=== PATIENT | female | born 2000 | race Caucasian/White ===

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

== ENCOUNTER 2018-02-03 12:00 | Inpatient (IN) | payer SELFPAY ==
[2018-02-03 13:13] LABS: BASO % 0.2 % (0-2.0); EOS % 0.9 % (0-4.5); HEMATOCRIT 35.7 % (32.4-45.2); LYMPH % 27.6 % (8-40); MCH 29.8 pg (25.7-33.7); MCHC 33.7 g/dl (32.0-36.0); MEAN CELL VOLUME 88.7 fl (80-96); MEAN PLT VOLUME 8.9 fl (7.5-11.1); MONO % 9.5 % (3.8-10.2); NEUT % 61.8 % (42.8-82.8); PLATELET COUNT 200 K/MM3 (134-434); RBC 4.03 M/mm3 (3.60-5.2); RDW 13.9 % (11.6-15.6); WHITE BLOOD COUNT 7.4 K/mm3 (4.0-10.0)
[2018-02-03 13:16] VITALS: BMI 28.4
[2018-02-03 13:29] LABS: INR 0.92 (0.83-1.09); PROTHROMBIN TIME (PATIENT) 10.8 SEC (9.7-13.0)
[2018-02-03] MEDS: DEXTROSE 5%-LACTATED RINGERS 1,000 ML IV SCH ×2 (13:30→22:05)
[2018-02-03 13:32] LABS: ACTIVATED PTT 26.6 SECONDS (25.2-36.5)
[2018-02-03 13:48] LABS: ANISOCYTOSIS 0; MACROCYTOSIS 0; PLATELET ESTIMATE NORMAL
[2018-02-03 14:08] LABS: ANION GAP 8 MMOL/L (8-16); BLOOD UREA NITROGEN 7 mg/dL (7-18); CALCIUM 8.6 mg/dL (8.5-10.1); CHLORIDE 107 mmol/L (98-107); CO2 23 mmol/L (21-32); CREATININE 0.3 mg/dL (0.55-1.3); GLUCOSE,RANDOM 80 mg/dL (74-106); POTASSIUM 3.9 mmol/L (3.5-5.1); SODIUM 138 mmol/L (136-145)
[2018-02-03] MEDS ORDERED: DINOPROSTONE 10 MG VAGINAL SUPPOSITORY VG ONE (14:43)
[2018-02-03] MEDS ORDERED: PROMETHAZINE HCL 25 MG/1 ML VIAL IVPUSH ONE (14:44)
[2018-02-03] MEDS ORDERED: BUTORPHANOL TARTRATE 1 MG/ML VIAL IVPUSH ONE (14:44)
--- NOTE | 2018-02-03 14:50 | HP ---
Past Medical History - Primary Care Physician PCP:: Nelson Shipley - Admission Chief Complaint: 38 weeks, oligohydramnions, for cervidil induction History of Present Illness: 18 yo f g 1 p0 edc by sono 02/17/18 38 weeks with hx of umbilical varnix and oligo ,UMA 4 , referred by Dr Jude SAL for induction, no pain, no contraction , no leaking fluid , cx closed 50 vx -2 mi, fhr cat 1, cervidil discussed , risks explained History Source: Patient, Significant Other Limitations to Obtaining History: Language Barrier - Past Medical History ...: 1 ...Para: 0 ...LMP: 05/09/17 ... Weeks Gestation by Dates: 38.4 ...EDC by Dates: 02/13/18 ...EDC by Sono: 02/17/18 - Past Surgical History Hx Myomectomy: No Hx Transabdominal Cerclage: No - Smoking History Smoking history: Never smoked Have you smoked in the past 12 months: No - Alcohol/Substance Use Hx Alcohol Use: No - Social History Usual Living Arrangement: Yes: With Spouse History of Recent Travel: No Home Medications - Allergies Allergies/Adverse Reactions: Allergies Allergy/AdvReac Type Severity Reaction Status Date / Time No Known Allergies Allergy Verified 02/03/18 13:02 - Home Medications Home Medications: Ambulatory Orders Prenat 115/Iron Fum/Folic/Dss [ 19 Tablet] 1 tab PO BID 01/20/18 Review of Systems - Review of Systems Constitutional: reports: No Symptoms Eyes: reports: No Symptoms HENT: reports: No Symptoms Neck: reports: No Symptoms Cardiovascular: reports: No Symptoms Respiratory: reports: No Symptoms Gastrointestinal: reports: No Symptoms Genitourinary: reports: No Symptoms Breasts: reports: No Symptoms Reported Musculoskeletal: reports: No Symptoms Integumentary: reports: No Symptoms Neurological: reports: No Symptoms Endocrine: reports: No Symptoms Hematology/Lymphatic: reports: No Symptoms Psychiatric: reports: No Symptoms Physical Exam - Maternity Vital Signs: Vital Signs Temperature 98.4 F 02/03/18 14:00 Pulse Rate 90 02/03/18 14:00 Respiratory Rate 20 02/03/18 14:00 Blood Pressure 111/70 02/03/18 14:00 O2 Sat by Pulse Oximetry (%) Constitutional: Yes: Well Nourished, No Distress, Calm Eyes: Yes: WNL, Conjunctiva Clear, EOM Intact HENT: Yes: WNL, Atraumatic, Normocephalic Neck: Yes: WNL, Supple, Trachea Midline Cardiovascular: Yes: WNL, Regular Rate and Rhythm Breast(s): Yes: WNL - Abdominal Exam/OB Fundal Height: 38 Number of Fetuses: Single Presentation: Vertex Contractions: No Intensity: Unaware Monitor Mode: External Heart Rate Location: [facility] Category: I Accelerations: Uniform Decelerations: None - Vaginal Exam/OB Vaginal Bleediing: No Speculum Exam: No Dilatation (cm): closed Effacement (%): 50 Amniotic Membrane Status: Intact Presentation: Vertex/Position Station: -2 - Physical Exam Musculoskeletal: Yes: WNL Extremities: Yes: WNL Edema: Yes Edema: LLE: Trace, RLE: Trace Deep Tendon Reflex Grade: Normal +2 Psychiatric: Yes: WNL - Labs Lab Results: CBC, BMP 02/03/18 12:15 02/03/18 12:15 Hemorrhage Risk Assessment - Risk Factors Medium Risk Factors: Yes: None High Risk Factors: Yes: None Risk Score: 1 Risk Level: Medium Risk Problem List - Problems (1) with 38 completed weeks gestation Code(s): Z3A.38 - 38 WEEKS GESTATION OF (2) Oligohydramnios Code(s): O41.00X0 - OLIGOHYDRAMNIOS, UNSP TRIMESTER, NOT APPLICABLE OR UNSP Qualifiers: Fetus number: single or unspecified fetus Trimester: third trimester Qualified Code(s): O41.03X0 - Oligohydramnios, third trimester, not applicable or unspecified Assessment/Plan plan cervidil induction , risks ,benfit discussed
--- NOTE | 2018-02-03 14:55 | PN ---
Progress Note (short form) - Note Progress Note: 245 pm cervidil inserted Problem List - Problems (1) with 38 completed weeks gestation Code(s): Z3A.38 - 38 WEEKS GESTATION OF (2) Oligohydramnios Code(s): O41.00X0 - OLIGOHYDRAMNIOS, UNSP TRIMESTER, NOT APPLICABLE OR UNSP Qualifiers: Fetus number: single or unspecified fetus Trimester: third trimester Qualified Code(s): O41.03X0 - Oligohydramnios, third trimester, not applicable or unspecified
[2018-02-04] MEDS: DEXTROSE 5%-LACTATED RINGERS 1,000 ML IV SCH ×2 (05:13→22:52)
--- NOTE | 2018-02-04 07:08 | PN ---
Progress Note (short form) - Note Progress Note: cervidil was removed at 230 am. cx 2 cm 80 vx -2 mi, fhr cat 1, contraction . irregular . can not tolerate pain , requesting epidural. ulternatives discussed Problem List - Problems (1) with 38 completed weeks gestation Code(s): Z3A.38 - 38 WEEKS GESTATION OF (2) Oligohydramnios Code(s): O41.00X0 - OLIGOHYDRAMNIOS, UNSP TRIMESTER, NOT APPLICABLE OR UNSP Qualifiers: Fetus number: single or unspecified fetus Trimester: third trimester Qualified Code(s): O41.03X0 - Oligohydramnios, third trimester, not applicable or unspecified
[2018-02-04] MEDS ORDERED: ELECTROLYTE-148 SOLN 1,000 ML IV SCH (07:15)
[2018-02-04] MEDS ORDERED: OXYTOCIN 30 UNITS in 0.9% NS 30 UNIT/500 ML INFUS.BAG IVPB SCH (07:30)
[2018-02-04] MEDS ORDERED: FENTANYL/BUPIVACAINE/NS/PF - PCEA - 50 ML DISP.SYRIN EP ONE ×3 (07:32→17:48)
[2018-02-04] MEDS ORDERED: OXYTOCIN 30 UNITS in 0.9% NS 30 UNIT/500 ML INFUS.BAG IVPB ONE (08:43)
[2018-02-04] MEDS ORDERED: NALOXONE HCL 0.4 MG/ML VIAL IVPUSH PRN (09:28)
[2018-02-04] MEDS: FENTANYL/BUPIVACAINE/NS/PF - PCEA - 50 ML DISP.SYRIN EP SCH (09:58)
--- NOTE | 2018-02-04 16:58 | PN ---
Progress Note (short form) - Note Progress Note: cx 4 cm 80 vx -1 arom, clear, fhr cat1, regular contraction Problem List - Problems (1) with 38 completed weeks gestation Code(s): Z3A.38 - 38 WEEKS GESTATION OF (2) Oligohydramnios Code(s): O41.00X0 - OLIGOHYDRAMNIOS, UNSP TRIMESTER, NOT APPLICABLE OR UNSP Qualifiers: Fetus number: single or unspecified fetus Trimester: third trimester Qualified Code(s): O41.03X0 - Oligohydramnios, third trimester, not applicable or unspecified
[2018-02-04] MEDS ORDERED: LIDO 2%/EPI 1:200000 PRESRVFRE (20 ML SDVIAL) ONE ×2 (18:34→20:13)
--- NOTE | 2018-02-04 18:40 | PN ---
Progress Note (short form) - Note Progress Note: cx 5 cm 100 vx -1 mr, fhr cat 1, regular contraction Problem List - Problems (1) with 38 completed weeks gestation Code(s): Z3A.38 - 38 WEEKS GESTATION OF (2) Oligohydramnios Code(s): O41.00X0 - OLIGOHYDRAMNIOS, UNSP TRIMESTER, NOT APPLICABLE OR UNSP Qualifiers: Fetus number: single or unspecified fetus Trimester: third trimester Qualified Code(s): O41.03X0 - Oligohydramnios, third trimester, not applicable or unspecified
[2018-02-04] MEDS ORDERED: CITRIC ACID/SODIUM CITRATE 30 ML UNIT-DOSE CUP PO ONE (20:07)
--- NOTE | 2018-02-04 20:08 | PN ---
Progress Note (short form) - Note Progress Note: cx 5 cm , large caput, no descent OP . fhr cat 1 . requesting c/s, risks discussed Problem List - Problems (1) with 38 completed weeks gestation Code(s): Z3A.38 - 38 WEEKS GESTATION OF (2) Oligohydramnios Code(s): O41.00X0 - OLIGOHYDRAMNIOS, UNSP TRIMESTER, NOT APPLICABLE OR UNSP Qualifiers: Fetus number: single or unspecified fetus Trimester: third trimester Qualified Code(s): O41.03X0 - Oligohydramnios, third trimester, not applicable or unspecified
[2018-02-04] MEDS ORDERED: oxyCODONE HCL 5 MG TABLET PO PRN (20:09)
[2018-02-04] MEDS ORDERED: diphenhydrAMINE HCL 25 MG CAPSULE (FP) PO PRN (20:09)
[2018-02-04] MEDS ORDERED: WITCH HAZEL 50% (TUCKS) 40 PAD/JAR PAD TP PRN (20:09)
[2018-02-04] MEDS ORDERED: IBUPROFEN 800 MG/8 ML IJ IVPB PRN (20:09)
[2018-02-04] MEDS ORDERED: BENZOCAINE 28 GM HEMORRHOIDAL OINTMENT PR PRN (20:09)
[2018-02-04] MEDS ORDERED: BENZOCAINE 20% 57 GM BOTTLE TP PRN (20:09)
[2018-02-04] MEDS ORDERED: METHYLERGONOVINE MALEATE 0.2 MG/1 ML AMP IM PRN (20:09)
[2018-02-04] MEDS ORDERED: OXYTOCIN 20 UNITS in 0.9% NS 20 UNIT/1,000 ML INFUS.BAG IV SCH (20:15)
[2018-02-04] MEDS ORDERED: PROPOFOL 20 ML ONE ×3 (20:37→21:01)
[2018-02-04] MEDS ORDERED: morphine SULFATE/Preservative Free 0.5 MG/ML (1cc Syringe) ONE ×3 (20:37)
[2018-02-04] MEDS ORDERED: MIDAZOLAM HCL 2 MG/2 ML SINGLE DOSE VIAL ONE ×2 (20:37→20:58)
[2018-02-04] MEDS ORDERED: SUCCINYLCHOLINE CHLORIDE 200 MG/10 ML VIAL ONE (20:37)
[2018-02-04] MEDS ORDERED: OXYTOCIN 10 UNITS/ML VIAL ONE (21:09)
[2018-02-04] MEDS ORDERED: SODIUM CHLORIDE 0.9% P/F 10 ML VIAL IJ ONE (21:09)
[2018-02-04] MEDS ORDERED: HYDROmorphone HCL CARPU-JECT 2 MG/1 ML DISP.SYRIN ONE (21:17)
[2018-02-04] MEDS ORDERED: DEXAMETHASONE SOD PHOSPHATE 4 MG/1 ML VIAL ONE (21:19)
[2018-02-04 22:10] LABS: ARTERIAL BLOOD GAS BASE EXCESS -2.7 meq/l (-2-2); ARTERIAL BLOOD GAS PCO2 51.7 mmHg (35-45); ARTERIAL BLOOD GAS pH 7.29 (7.35-7.45)
[2018-02-04 22:13] LABS: ARTERIAL BLOOD GAS PO2 22.8 mmHg (80-100)
[2018-02-04 22:14] LABS: ARTERIAL BLD GAS O2 SATURATION 47.1 % (90-98.9)
[2018-02-04] MEDS ORDERED: ROCURONIUM BROMIDE 50 MG/5 ML VIAL ONE ×2 (22:14)
[2018-02-04 22:15] LABS: VENOUS PC02 48.3 mmHg (38-52); VENOUS PH 7.3 (7.32-7.42); VENOUS PO2 47.7 mmHg (28-48)
[2018-02-04] MEDS ORDERED: SEVOFLURANE 250 ML BTL ONE (22:24)
[2018-02-05] MEDS ORDERED: OXYTOCIN 20 UNITS in 0.9% NS 20 UNIT/1,000 ML INFUS.BAG IV ONE (01:02)
[2018-02-05] MEDS ORDERED: DEXTROSE 5%-WATER - 50 ML IVPB ONE ×3 (02:47→18:34)
[2018-02-05] MEDS ORDERED: ceFAZolin SODIUM 1 GM VIAL ONE ×3 (02:47→18:34)
[2018-02-05] MEDS: CEFAZOLIN 1 GM in DEXTROSE 5%-WATER - 50 ML IVPB SCH ×4 (02:54→21:44)
[2018-02-05] MEDS ORDERED: ONDANSETRON 4 MG/2 ML VIAL IVPUSH PRN (05:40)
[2018-02-05 08:08] LABS: BASO % 0.2 % (0-2.0); HEMATOCRIT 34.2 % (32.4-45.2); HEMOGLOBIN 11.2 GM/dL (10.7-15.3); LYMPH % 12.8 % (8-40); MCH 29.1 pg (25.7-33.7); MCHC 32.8 g/dl (32.0-36.0); MEAN CELL VOLUME 88.7 fl (80-96); MEAN PLT VOLUME 9.1 fl (7.5-11.1); PLATELET COUNT 206 K/MM3 (134-434); RBC 3.86 M/mm3 (3.60-5.2); RDW 14.1 % (11.6-15.6); WHITE BLOOD COUNT 13.2 K/mm3 (4.0-10.0)
[2018-02-05] MEDS: SIMETHICONE 80 MG TAB.CHEW (FP) PO PRN ×3 (10:13→18:50)
--- NOTE | 2018-02-05 14:29 | PN ---
Progress Note, Physician Chief Complaint: s/p c section post op day one History of Present Illness: under epidural anesthesia with dura morph for post op pain control - Current Medication List Current Medications: Active Medications Benzocaine (Americaine 20% [place] -) 1 spray TP PRN PRN PRN Reason: Pain - Topical Benzocaine (Americaine Ointment -) 1 applic [place] PRN PRN PRN Reason: Pain - Topical Bisacodyl (Dulcolax Suppository -) 10 mg [place] PRN PRN PRN Reason: CONSTIPATION Diphenhydramine HCl (Benadryl -) 25 mg PO Q8H PRN PRN Reason: FOR ITCHING Diphenhydramine HCl (Benadryl Injection -) 25 mg IVPUSH Q4H PRN PRN Reason: Pruritis Fentanyl/Bupivacaine/Sodium Chlor (Bupivicaine 0.125%/Fentanyl 2mcg/Ml Pcea) 50 ml EP ASDIR CIERRA; Protocol Last Admin: 02/04/18 09:58 Dose: 50 ml Parenteral Electrolytes (Plasma-Lyte 148 -) 1,000 mls @ 125 mls/hr IV ASDIR CIERRA Last Admin: 02/04/18 07:15 Dose: 125 mls/hr Oxytocin/Sodium Chloride (Normal Saline+30 Units Oxytocin) 30 unit in 500 mls @ 1 mls/hr IVPB TITR [facility]; Protocol Last Titration: 02/04/18 13:30 Dose: 0.6 unit/hr, 10 mls/hr Cefazolin Sodium 1 gm/ (Dextrose) 50 mls @ 100 mls/hr IVPB Q8H CIERRA Stop: 02/06/18 01:59 Last Admin: 02/05/18 10:04 Dose: 100 mls/hr Dextrose/Lactated Ringer's (D5-Lr -) 1,000 mls @ 125 mls/hr IV ASDIR CIERRA Last Admin: 02/04/18 22:52 Dose: Not Given Ibuprofen (Motrin -) 600 mg PO Q4H PRN PRN Reason: PAIN LEVEL 1 - 3 Ibuprofen (Caldolor Injection -) 800 mg IVPB Q6H PRN PRN Reason: PAIN > 5 if PO not effective. Last Admin: 02/05/18 07:44 Dose: 800 mg Methylergonovine Maleate (Methergine Injection -) 0.2 mg IM Q4H PRN PRN Reason: EXCESSIVE BLEEDING Naloxone HCl (Narcan -) 0.4 mg IVPUSH PRN PRN PRN Reason: Sedation Ondansetron HCl (Zofran Injection) 4 mg IVPUSH Q4H PRN PRN Reason: NAUSEA Oxycodone HCl (Roxicodone -) 5 mg PO Q4H PRN PRN Reason: PAIN LEVEL 4 - 6 Oxycodone HCl (Roxicodone -) 10 mg PO Q4H PRN PRN Reason: PAIN LEVEL 7 - 10 Senna/Docusate Sodium (Pericolace -) 2 tablet PO HS PRN PRN Reason: CONSTIPATION Simethicone (Mylicon -) 80 mg PO Q4H PRN PRN Reason: GAS Last Admin: 02/05/18 10:13 Dose: 80 mg Witch So/Glycerin (Tucks Pads -) 1 pad TP PRN PRN PRN Reason: Pain - Topical - Objective Vital Signs: Vital Signs Temperature 100.7 F H 02/05/18 06:11 Pulse Rate 100 H 02/05/18 06:11 Respiratory Rate 20 02/05/18 09:00 Blood Pressure 99/48 L 02/05/18 06:11 O2 Sat by Pulse Oximetry (%) 100 02/04/18 23:30 Constitutional: Yes: Well Nourished Cardiovascular: Yes: WNL Respiratory: Yes: WNL Gastrointestinal: Yes: WNL Labs: CBC, BMP 02/05/18 06:45 02/03/18 12:15 INR, PTT INR 0.92 (0.83-1.09) 02/03/18 12:15 Assessment/Plan No adverse effect of anesthetic, pain controlled, no nausea or vomiting, dept of anesthesia will sign off care at this time.
[2018-02-05] MEDS: oxyCODONE HCL 5 MG TABLET PO PRN ×2 (14:45→18:49)
[2018-02-05] MEDS: IBUPROFEN 600 MG TABLET (FP) PO PRN ×2 (14:46→18:50)
--- NOTE | 2018-02-05 16:27 | PN ---
Progress Note (short form) - Note Progress Note: pod 1 doing well, no c/o CBC, BMP 02/05/18 06:45 02/03/18 12:15 Last Vital Signs Temp Pulse Resp BP Pulse Ox 100.7 F H 100 H 20 99/48 L 100 02/05/18 06:11 02/05/18 06:11 02/05/18 09:00 02/05/18 06:11 02/04/18 23:30 abdomen soft, no distension, no cva incision dry, clean no calf tenderness no excess vaginal bleeding impression low grade temp, r/o atelectasis plan ambulate , monitor temp cont. iv antibiotics encourage deep breathing Problem List - Problems (1) with 38 completed weeks gestation Code(s): Z3A.38 - 38 WEEKS GESTATION OF (2) Oligohydramnios Code(s): O41.00X0 - OLIGOHYDRAMNIOS, UNSP TRIMESTER, NOT APPLICABLE OR UNSP Qualifiers: Fetus number: single or unspecified fetus Trimester: third trimester Qualified Code(s): O41.03X0 - Oligohydramnios, third trimester, not applicable or unspecified
[2018-02-05] MEDS: DEXTROSE 5%-LACTATED RINGERS 1,000 ML IV SCH (19:00)
[2018-02-05] MEDS ORDERED: BISACODYL 10 MG SUPP.RECT PR PRN (20:09)
[2018-02-05] MEDS: FENTANYL/BUPIVACAINE/NS/PF - PCEA - 50 ML DISP.SYRIN EP SCH (21:41)
[2018-02-06] MEDS ORDERED: DEXTROSE 5%-WATER - 50 ML IVPB ONE ×3 (01:24→17:55)
[2018-02-06] MEDS ORDERED: ceFAZolin SODIUM 1 GM VIAL ONE ×3 (01:24→17:55)
[2018-02-06] MEDS: CEFAZOLIN 1 GM in DEXTROSE 5%-WATER - 50 ML IVPB SCH ×3 (01:30→18:03)
[2018-02-06] MEDS: oxyCODONE HCL 5 MG TABLET PO PRN ×4 (02:41→21:05)
[2018-02-06] MEDS: SIMETHICONE 80 MG TAB.CHEW (FP) PO PRN ×4 (02:41→21:04)
[2018-02-06] MEDS: IBUPROFEN 600 MG TABLET (FP) PO PRN ×4 (02:42→21:05)
--- NOTE | 2018-02-06 09:49 | PN ---
Progress Note (short form) - Note Progress Note: pod 2 doing well, ambulating, no excess vaginal bleeding, passing gas CBC, BMP 02/05/18 06:45 02/03/18 12:15 Last Vital Signs Temp Pulse Resp BP Pulse Ox 98.5 F 93 H 18 109/50 L 100 02/06/18 06:00 02/06/18 02:00 02/06/18 02:00 02/06/18 02:00 02/04/18 23:30 abdomen soft, no distension, no cva incision dry, clean no calf tenderness plan ambulate , cbc in am Problem List - Problems (1) with 38 completed weeks gestation Code(s): Z3A.38 - 38 WEEKS GESTATION OF (2) Oligohydramnios Code(s): O41.00X0 - OLIGOHYDRAMNIOS, UNSP TRIMESTER, NOT APPLICABLE OR UNSP Qualifiers: Fetus number: single or unspecified fetus Trimester: third trimester Qualified Code(s): O41.03X0 - Oligohydramnios, third trimester, not applicable or unspecified
[2018-02-06] MEDS: SENNOSIDES/DOCUSATE COMBO (SENNA PLUS) TABLET (UD) PO PRN (21:04)
[2018-02-07] MEDS: SIMETHICONE 80 MG TAB.CHEW (FP) PO PRN ×4 (05:41→22:06)
[2018-02-07] MEDS: IBUPROFEN 600 MG TABLET (FP) PO PRN ×4 (05:41→22:06)
[2018-02-07] MEDS: oxyCODONE HCL 5 MG TABLET PO PRN ×3 (05:43→16:14)
--- NOTE | 2018-02-07 07:49 | PN ---
Progress Note (short form) - Note Progress Note: pod 3,has mild low abdominal cramps. passing as, ambulating, afebrile CBC, BMP 02/05/18 06:45 02/03/18 12:15 Last Vital Signs Temp Pulse Resp BP Pulse Ox 99.8 F H 88 18 110/58 L 100 02/07/18 05:44 02/06/18 22:00 02/06/18 22:00 02/06/18 22:00 02/06/18 23:00 abdomen soft, no distension, no cva incision dry, clean no calf tenderness plan cbc today ambulate if afebrile plan for d/c home in am Problem List - Problems (1) with 38 completed weeks gestation Code(s): Z3A.38 - 38 WEEKS GESTATION OF (2) Oligohydramnios Code(s): O41.00X0 - OLIGOHYDRAMNIOS, UNSP TRIMESTER, NOT APPLICABLE OR UNSP Qualifiers: Fetus number: single or unspecified fetus Trimester: third trimester Qualified Code(s): O41.03X0 - Oligohydramnios, third trimester, not applicable or unspecified
[2018-02-07 08:31] LABS: BASO % 0.5 % (0-2.0); EOS % 2.2 % (0-4.5); HEMATOCRIT 32.9 % (32.4-45.2); HEMOGLOBIN 10.6 GM/dL (10.7-15.3); LYMPH % 20.7 % (8-40); MCH 28.7 pg (25.7-33.7); MCHC 32.2 g/dl (32.0-36.0); MEAN CELL VOLUME 89.3 fl (80-96); MEAN PLT VOLUME 8.7 fl (7.5-11.1); MONO % 8.2 % (3.8-10.2); NEUT % 68.4 % (42.8-82.8); PLATELET COUNT 232 K/MM3 (134-434); RBC 3.68 M/mm3 (3.60-5.2); RDW 13.7 % (11.6-15.6); WHITE BLOOD COUNT 11.1 K/mm3 (4.0-10.0)
[2018-02-07] MEDS: SENNOSIDES/DOCUSATE COMBO (SENNA PLUS) TABLET (UD) PO PRN (22:06)
[2018-02-08] MEDS: IBUPROFEN 600 MG TABLET (FP) PO PRN (09:00)
[2018-02-08] MEDS: SIMETHICONE 80 MG TAB.CHEW (FP) PO PRN (09:00)
[2018-02-08 09:18] VITALS: BP 101/60; PULSE 73; TEMP 98.1
--- NOTE | 2018-02-08 10:02 | DS ---
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: Vital Signs Temperature 98.1 F 02/08/18 09:08 Pulse Rate 73 02/08/18 09:08 Respiratory Rate 20 02/08/18 09:08 Blood Pressure 101/60 02/08/18 09:08 O2 Sat by Pulse Oximetry (%) 100 02/06/18 23:00 Constitutional: Yes: Well Nourished, No Distress, Calm Eyes: Yes: WNL, Conjunctiva Clear, EOM Intact HENT: Yes: WNL, Atraumatic, Normocephalic Neck: Yes: WNL, Supple, Trachea Midline Cardiovascular: Yes: WNL, Regular Rate and Rhythm Respiratory: Yes: WNL, Regular, CTA Bilaterally Gastrointestinal: Yes: WNL ...Rectal Exam: Yes: WNL Renal/: Yes: WNL ....Post : Yes: Uterus firm, Uterus non-tender, Slight lochia rubra Breast(s): Yes: WNL Musculoskeletal: Yes: WNL Extremities: Yes: WNL Edema: No Integumentary: Yes: WNL Wound/Incision: Yes: Clean/Dry, Well Approximated, [place] Intact Neurological: Yes: WNL, Alert, Oriented ...Motor Strength: WNL Psychiatric: Yes: WNL, Alert, Oriented Labs: CBC, BMP 02/07/18 07:40 02/03/18 12:15 Delivery - Delivery Section: Primary, Low Flap Transverse (no complication) Type of Anesthesia: General EBL (cc): 500 Delivery, Single - Stages of Labor Date 1st Stage Initiatied: 02/04/18 Time 1st Stage Initiated: 08:00 Date 2nd Stage Initiated: 02/04/18 Date of Delivery: 02/04/18 Time of Delivery: 20:49 Time Placenta Delivered: 20:50 Placenta: Yes: Expressed - 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 care 1 week, if fever pain, heavy vaginal bleeding call MD Referrals: Nelson Shipley MD [Staff Physician] - - Home Medications Comprehensive Discharge Medication List: Ambulatory Orders Prenat 115/Iron Fum/Folic/Dss [ 19 Tablet] 1 tab PO BID 01/20/18 Ibuprofen [Motrin -] 600 mg PO QID #28 tablet 02/06/18 Ibuprofen [Motrin -] 600 mg PO QID #28 tablet 02/08/18
--- NOTE | 2018-02-08 11:31 | PN ---
Post Progress Note Post Day: 4 Type of Delivery: Primary C/S Vital Signs: Vital Signs Temperature 98.1 F 02/08/18 09:08 Pulse Rate 73 02/08/18 09:08 Respiratory Rate 20 02/08/18 09:08 Blood Pressure 101/60 02/08/18 09:08 O2 Sat by Pulse Oximetry (%) 100 02/06/18 23:00 Breast Exam: Yes: Soft Abdomen/GI: Yes: Abdomen soft Lochia: Yes: Rubra Lochia, amount: Small Extremities: Yes: Calves non-tender Perineum: Yes: Intact Activity: Ambulating - Labs Labs: CBC WBC 11.1 K/mm3 (4.0-10.0) H 02/07/18 07:40 RBC 3.68 M/mm3 (3.60-5.2) 02/07/18 07:40 Hgb 10.6 GM/dL (10.7-15.3) L 02/07/18 07:40 Hct 32.9 % (32.4-45.2) 02/07/18 07:40 MCV 89.3 fl (80-96) 02/07/18 07:40 MCH 28.7 pg (25.7-33.7) 02/07/18 07:40 MCHC 32.2 g/dl (32.0-36.0) 02/07/18 07:40 RDW 13.7 % (11.6-15.6) 02/07/18 07:40 Plt Count 232 K/MM3 (134-434) 02/07/18 07:40 MPV 8.7 fl (7.5-11.1) 02/07/18 07:40 Absolute Neuts (auto) 7.6 K/mm3 (1.5-8.0) 02/07/18 07:40 Neutrophils % 68.4 % (42.8-82.8) 02/07/18 07:40 Neutrophils % (Manual) 59.4 % (42.8-82.8) 02/03/18 12:15 Band Neutrophils % 0.0 % 02/03/18 12:15 Lymphocytes % 20.7 % (8-40) D 02/07/18 07:40 Lymphocytes % (Manual) 30.2 % (8-40) 02/03/18 12:15 Monocytes % 8.2 % (3.8-10.2) 02/07/18 07:40 Monocytes % (Manual) 8 % (3.8-10.2) 02/03/18 12:15 Eosinophils % 2.2 % (0-4.5) D 02/07/18 07:40 Eosinophils % (Manual) 1.1 % (0-4.5) 02/03/18 12:15 Basophils % 0.5 % (0-2.0) 02/07/18 07:40 Basophils % (Manual) 1.0 % (0-2.0) 02/03/18 12:15 Myelocytes % (Man) 0 % (0-2) 02/03/18 12:15 Promyelocytes % (Man) 0 % (0-2) 02/03/18 12:15 Blast Cells % (Manual) 0 % (0-0) 02/03/18 12:15 Nucleated RBC % 0 % (0-0) 02/07/18 07:40 Metamyelocytes 0 % (0-2) 02/03/18 12:15 Hypochromia 0 02/03/18 12:15 Platelet Estimate Normal 02/03/18 12:15 Polychromasia 0 02/03/18 12:15 Poikilocytosis 0 02/03/18 12:15 Anisocytosis 0 02/03/18 12:15 Microcytosis 0 02/03/18 12:15 Macrocytosis 0 02/03/18 12:15 Assessment/Plan stable dc home see on wednesday for inc check
--- NOTE | 2018-02-11 16:41 | PATH ---
Surgical Pathology Report Patient Name: ELAINE GALE Med. Rec. #: [id number] /Age/Gender: 2000 (Age: 18) / F Account: [id number] Location: [facility] OBS/NET ARCHITECT Taken: 02/04/2018 Received: 02/07/2018 Reported: 02/11/2018 Physicians: Nelson Shipley M.D. Specimen(s) Received PLACENTA Clinical History 38.4 weeks, , primary , failure to progress Final Diagnosis PLACENTA: THIRD TRIMESTER PLACENTA WITH TWO FOCI OF INTRAPARENCHYMAL HEMORRHAGE (1.1 CM IN GREATEST DIMENSION). TRIVASCULAR CORD. MEMBRANES WITH NO DIAGNOSTIC ABNORMALITIES. Electronically Signed Lou Prajapati M.D. Gross Description The specimen is received fresh labeled placenta and is a 534 gram, 16.0 x 13.5 x 3.4 cm. placenta with attached membranes and umbilical cord. The attached membranes are smith, translucent with focal opacities and insert marginally. The umbilical cord measures 16.5 cm. in length and averages 1.2 cm. in diameter. The cord inserts eccentrically, 2.5 cm. to the nearest margin. No true knots or strictures are identified. Cut surface of the umbilical cord reveals 3 vessels. The surface is stoner-blue with minimal fibrin deposition and appropriate caliber vessels. The maternal surface is red-brown with focal defects. Sectioning reveals 2 smith, firm lesions averaging 1.1 cm greatest dimension. The remaining placental parenchyma is red-brown and spongy. Retort Operator sections are submitted in 4 cassettes as follows: 1-membrane roll and umbilical cord; 2-3-lesions; 1-[id number] section of placenta. 02/10/2018 saudi02/10/2018
== END 2018-02-08 14:00 | disposition home or self-care (01) | DRG 540 ==
LOC: JLDR 12:00 → J3W 02-05 01:50
PROVIDERS: ADMIT Obstetrics & Gynecology; ATTEND Obstetrics & Gynecology
PROC: 10D00Z1 Extraction of Products of Conception, Low, Open Approach (ICD-10-PCS; principal; 2018-02-03)
PROC: 3E0P7VZ Introduction of Hormone into Female Reproductive, Via Natural or Artificial Opening (ICD-10-PCS; 2018-02-03)
DX: O41.03X0 Oligohydramnios, third trimester, not applicable or unspecified (principal); Z3A.38 38 weeks gestation of pregnancy; Z37.0 Single live birth
CPT/HCPCS: 36415; 36600; 80048; 82803; 85025; 85610; 85730; 86593; 86850; 86900; 86901; 88307-TC

== ENCOUNTER 2021-06-17 13:17 | Emergency (ER) | payer OTHER ==
[2021-06-17 13:26] VITALS: BP 119/80; PULSE 88; TEMP 98; BMI 25.8
[2021-06-17] MEDS ORDERED: ONDANSETRON 4 MG/2 ML VIAL IVPB ONE (13:54)
[2021-06-17] MEDS ORDERED: SODIUM CHLORIDE 0.9% 500 ML INFUS.BAG IV ONE (13:55)
[2021-06-17] MEDS ORDERED: ONDANSETRON 4 MG/2 ML VIAL ONE (14:08)
[2021-06-17 14:23] LABS: EPI CELLS >36 /uL (0-25.1); HYALINE CASTS 16 /uL (0-3.1); PH,URINE 5.5 (5.0-8.0); URINE APPEARANCE TURBID; URINE BACTERIA 3914 /uL (0-1359); URINE BILIRUBIN 2+ (NEGATIVE); URINE COLOR DK YELLOW; URINE GLUCOSE (UA) NEGATIVE (NEGATIVE); URINE KETONE 4+ (NEGATIVE); URINE LEUK ESTERASE 2+ (NEGATIVE); URINE NITRITE NEGATIVE (NEGATIVE); URINE PROTEIN 1+ (NEGATIVE); URINE RBC 16 /uL (0-23.9); URINE WBC 237 /uL (0-25.8)
[2021-06-17 14:49] LABS: BASO % 1.1 % (0-2.0); EOS % 1.8 % (0-4.5); HEMATOCRIT 40.3 % (32.4-45.2); HEMOGLOBIN 13.4 GM/dL (10.7-15.3); MCH 28.3 pg (25.7-33.7); MCHC 33.2 g/dl (32.0-36.0); MEAN CELL VOLUME 85.1 fl (80-96); MEAN PLT VOLUME 8.8 fl (7.5-11.1); MONO % 8.3 % (3.8-10.2); NEUT % 59.8 % (42.8-82.8); PLATELET COUNT 237 10^3/uL (134-434); RBC 4.73 M/mm3 (3.60-5.2); RDW 13.1 % (11.6-15.6); WHITE BLOOD COUNT 5.5 K/mm3 (4.0-10.0)
[2021-06-17 15:03] LABS: CALCIUM 9.5 mg/dL (8.5-10.1)
[2021-06-17 15:04] LABS: ALBUMIN 3.8 g/dl (3.4-5.0)
[2021-06-17 15:07] LABS: CREATININE 0.5 mg/dL (0.55-1.3)
[2021-06-17 15:09] LABS: BILIRUBIN,TOTAL 0.9 mg/dL (0.2-1); TOT PROT 8.2 g/dl (6.4-8.2)
== END 2021-06-17 17:06 | disposition home or self-care (01) ==
LOC: JERFT 13:17 → JER 13:17
PROC: 3E033GC Introduction of Other Therapeutic Substance into Peripheral Vein, Percutaneous Approach (ICD-10-PCS; principal; 2021-06-17)
DX: O21.9 Vomiting of pregnancy, unspecified (principal); Z3A.01 Less than 8 weeks gestation of pregnancy
CPT/HCPCS: 36415; 76801-TC; 80053; 81003; 84702; 84703; 85025; 87086; 96374; 99284-25

== ENCOUNTER 2021-07-05 20:48 | Emergency (ER) | payer OTHER ==
[2021-07-05 20:58] VITALS: TEMP 98.2; BMI 29.9
[2021-07-05] MEDS ORDERED: ACETAMINOPHEN 1000 MG/100 ML BAG IVPB ONE (21:29)
[2021-07-05] MEDS ORDERED: ACETAMINOPHEN INJECTION 100 ML IVPB ONE (21:55)
[2021-07-05 21:56] LABS: BASO % 0.4 % (0-2.0); EOS % 1.6 % (0-4.5); HEMATOCRIT 35.5 % (32.4-45.2); HEMOGLOBIN 12.2 GM/dL (10.7-15.3); LYMPH % 21.7 % (8-40); MCH 29.1 pg (25.7-33.7); MCHC 34.3 g/dl (32.0-36.0); MEAN CELL VOLUME 84.8 fl (80-96); MEAN PLT VOLUME 8.7 fl (7.5-11.1); MONO % 7.6 % (3.8-10.2); NEUT % 68.7 % (42.8-82.8); PLATELET COUNT 244 10^3/uL (134-434); RBC 4.19 M/mm3 (3.60-5.2); WHITE BLOOD COUNT 8.9 K/mm3 (4.0-10.0)
[2021-07-05 22:16] LABS: CALCIUM 9.5 mg/dL (8.5-10.1)
[2021-07-05 22:17] LABS: ALBUMIN 3.5 g/dl (3.4-5.0); BLOOD UREA NITROGEN 8.7 mg/dL (7-18); MAGNESIUM 2.2 mg/dL (1.8-2.4)
[2021-07-05 22:20] LABS: CREATININE 0.4 mg/dL (0.55-1.3)
[2021-07-05 22:21] LABS: BILIRUBIN,TOTAL 0.4 mg/dL (0.2-1); TOT PROT 8.1 g/dl (6.4-8.2)
[2021-07-05 22:22] LABS: EPI CELLS >36 /uL (0-25.1); HYALINE CASTS 1 /uL (0-3.1); PH,URINE 7.5 (5.0-8.0); URINE APPEARANCE CLEAR; URINE BACTERIA 88 /uL (0-1359); URINE BILIRUBIN NEGATIVE (NEGATIVE); URINE COLOR YELLOW; URINE GLUCOSE (UA) NEGATIVE (NEGATIVE); URINE KETONE NEGATIVE (NEGATIVE); URINE LEUK ESTERASE 1+ (NEGATIVE); URINE NITRITE NEGATIVE (NEGATIVE); URINE PROTEIN NEGATIVE (NEGATIVE); URINE RBC 5 /uL (0-23.9); URINE WBC 49 /uL (0-25.8)
[2021-07-05 22:24] LABS: INR 1.03 (0.83-1.09); PROTHROMBIN TIME (PATIENT) 11.9 SEC (9.7-13.0)
[2021-07-05 22:26] LABS: ACTIVATED PTT 35.2 SECONDS (25.2-36.5)
[2021-07-05] MEDS ORDERED: CEFTRIAXONE 1,000 MG in DEXTROSE 5%-WATER - 50 ML IVPB ONE (22:30)
[2021-07-05] MEDS ORDERED: CEFTRIAXONE 1 GM/50 ML BAG ONE (23:03)
[2021-07-05 23:38] VITALS: BP 106/77; PULSE 69
== END 2021-07-06 01:05 | disposition home or self-care (01) ==
LOC: JER 20:48
PROC: 3E0333Z Introduction of Anti-inflammatory into Peripheral Vein, Percutaneous Approach (ICD-10-PCS; principal; 2021-07-05)
PROC: 3E03329 Introduction of Other Anti-infective into Peripheral Vein, Percutaneous Approach (ICD-10-PCS; 2021-07-05)
DX: O02.1 Missed abortion (principal); O26.851 Spotting complicating pregnancy, first trimester; Z3A.01 Less than 8 weeks gestation of pregnancy
CPT/HCPCS: 36415; 76817-TC; 80053; 81003; 83735; 84702; 85025; 85610; 85730; 86850; 86900; 86901; 87086; 99284-25

== ENCOUNTER 2021-07-21 05:15 | Day surgery (SDC) | payer OTHER ==
[2021-07-18 16:18] VITALS: BMI 28.3
[2021-07-21] MEDS ORDERED: MIDAZOLAM HCL 2 MG/2 ML SINGLE DOSE VIAL ONE (10:13)
[2021-07-21] MEDS ORDERED: PROPOFOL 20 ML ONE (10:13)
[2021-07-21] MEDS ORDERED: DEXAMETHASONE SOD PHOSPHATE 4 MG/1 ML VIAL ONE (10:51)
[2021-07-21] MEDS ORDERED: ONDANSETRON 4 MG/2 ML VIAL ONE (10:51)
[2021-07-21] MEDS ORDERED: LIDOCAINE HCL/PF 2% SDV 5ML VIAL ONE (10:51)
[2021-07-21] MEDS ORDERED: SUCCINYLCHOLINE CHLORIDE 200 MG/10 ML SYRINGE ONE (11:02)
[2021-07-21] MEDS ORDERED: ROCURONIUM BROMIDE 100 MG/10 ML VIAL ONE (11:03)
[2021-07-21] MEDS ORDERED: oxyCODONE HCL 5 MG TABLET PO PRN ×2 (12:33)
[2021-07-21] MEDS ORDERED: ONDANSETRON 4 MG/2 ML VIAL IVPUSH PRN (12:33)
[2021-07-21] MEDS ORDERED: LACTATED RINGERS SOLUTION 1,000 ML IV SCH (12:45)
[2021-07-21 12:47] VITALS: TEMP 97.3
[2021-07-21 13:01] VITALS: BP 118/70; PULSE 70
== END 2021-07-21 13:41 | disposition home or self-care (01) ==
LOC: JASU-SURG 05:15
PROVIDERS: ATTEND Obstetrics & Gynecology
PROC: 10D17ZZ Extraction of Products of Conception, Retained, Via Natural or Artificial Opening (ICD-10-PCS; principal; 2021-07-21 10:00)
DX: O03.4 Incomplete spontaneous abortion without complication (principal)
CPT/HCPCS: 88305-TC; 94760

== ENCOUNTER 2022-11-19 22:46 | Inpatient (IN) | payer OTHER ==
[2022-11-19 23:53] LABS: BASO % 0.2 % (0-2.0); EOS % 0.8 % (0-4.5); HEMATOCRIT 33.3 % (32.4-45.2); HEMOGLOBIN 11.6 GM/dL (10.7-15.3); LYMPH % 30.6 % (8-40); MCH 29.4 pg (25.7-33.7); MCHC 34.9 g/dl (32.0-36.0); MEAN CELL VOLUME 84.2 fl (80-96); MEAN PLT VOLUME 9.2 fl (7.5-11.1); MONO % 9.4 % (3.8-10.2); PLATELET COUNT 169 10^3/uL (134-434); RBC 3.95 M/mm3 (3.60-5.2); RDW 13.8 % (11.6-15.6); WHITE BLOOD COUNT 8.6 K/mm3 (4.0-10.0)
[2022-11-20 00:02] LABS: CALCIUM 8.7 mg/dL (8.5-10.1); POTASSIUM 3.9 mmol/L (3.5-5.1)
[2022-11-20 00:03] LABS: BLOOD UREA NITROGEN 9.5 mg/dL (7-18)
[2022-11-20] MEDS ORDERED: ONDANSETRON 4 MG/2 ML VIAL IVPUSH PRN (00:04)
[2022-11-20] MEDS ORDERED: morphine SULFATE/PF 1 MG/2 ML (2cc Syringe - QUVA) EP ONE (00:04)
[2022-11-20 00:06] LABS: CREATININE 0.5 mg/dL (0.55-1.3)
[2022-11-20] MEDS ORDERED: ceFAZolin SODIUM 1 GM VIAL ONE (00:11)
[2022-11-20] MEDS ORDERED: SODIUM CHLORIDE 0.9% P/F 10 ML VIAL IJ ONE (00:11)
[2022-11-20] MEDS ORDERED: PHENYLEPHRINE HCL 10 MG/1 ML SINGLE DOSE VIAL ONE (00:12)
[2022-11-20] MEDS ORDERED: ELECTROLYTE-148 SOLN 1,000 ML IV SCH (00:15)
[2022-11-20] MEDS ORDERED: CITRIC ACID/SODIUM CITRATE 30 ML UNIT-DOSE CUP PO ONE (00:15)
[2022-11-20] MEDS ORDERED: OXYTOCIN 10 UNITS/ML VIAL ONE ×2 (00:51→01:16)
[2022-11-20] MEDS ORDERED: ONDANSETRON 4 MG/2 ML VIAL ONE (01:03)
[2022-11-20] MEDS ORDERED: ACETAMINOPHEN 325 MG TABLET (FP) PO PRN (01:24)
[2022-11-20] MEDS ORDERED: METHYLERGONOVINE MALEATE 0.2 MG/1 ML AMP IM PRN (01:24)
[2022-11-20] MEDS ORDERED: IBUPROFEN 800 MG/8 ML IJ IVPB PRN (01:26)
[2022-11-20] MEDS ORDERED: METOCLOPRAMIDE HCL INJECTION 10 MG/2 ML VIAL ONE (01:28)
[2022-11-20 02:08] LABS: CORD BASE EXCESS -2.7 mmol/L (0-2); CORD HCO3 25.5 mmHg (20-29); CORD PCO2 57.9 mmHg (30-78); CORD pH 7.261 (7.14-7.44)
[2022-11-20 02:10] LABS: CORD BASE EXCESS -2.8 mmol/L (0-2); CORD HCO3 23.3 mmHg (20-29); CORD PCO2 44.7 mmHg (30-78); CORD pH 7.334 (7.14-7.44)
[2022-11-20 02:12] VITALS: BMI 33.3
[2022-11-20 03:28] LABS: HIV INTERPRETATION NEGATIVE (NEGATIVE)
[2022-11-20] MEDS ORDERED: OXYTOCIN 20 UNITS in 0.9% NS 20 UNIT/1,000 ML INFUS.BAG IV ONE (03:57)
[2022-11-20] MEDS: OXYTOCIN 20 UNITS in 0.9% NS 20 UNIT/1,000 ML INFUS.BAG IV SCH ×2 (04:10→12:47)
[2022-11-20] MEDS: CEFAZOLIN SODIUM 2 GM in DEXTROSE 5%-WATER 100 ML IVPB SCH ×3 (04:22→17:32)
[2022-11-20] MEDS ORDERED: IBUPROFEN 800 MG/8 ML IJ IVPB ONE (04:35)
[2022-11-20 05:12] VITALS: RESP 18
[2022-11-20] MEDS: ENOXAPARIN NA (PORCINE) 40 MG/0.4 ML DISP.SYRIN SQ SCH (09:20)
[2022-11-20] MEDS: SIMETHICONE 80 MG TAB.CHEW (FP) PO PRN ×2 (09:20→20:34)
[2022-11-20] MEDS: IBUPROFEN 600 MG TABLET (FP) PO PRN ×2 (09:21→20:34)
[2022-11-20] MEDS: GENTAMICIN SULFATE 0.3% OPHTHALMIC (EYE DROPS) 5ML BOTTLE OU SCH ×3 (10:24→22:16)
[2022-11-20] MEDS ORDERED: oxyCODONE HCL 5 MG TABLET PO PRN (13:24)
[2022-11-21] MEDS ORDERED: BISACODYL 10 MG SUPP.RECT RC PRN (01:24)
[2022-11-21] MEDS: OXYTOCIN 20 UNITS in 0.9% NS 20 UNIT/1,000 ML INFUS.BAG IV SCH (05:41)
[2022-11-21] MEDS: IBUPROFEN 600 MG TABLET (FP) PO PRN ×2 (05:42→09:49)
[2022-11-21] MEDS: SIMETHICONE 80 MG TAB.CHEW (FP) PO PRN ×3 (05:42→23:53)
[2022-11-21] MEDS: GENTAMICIN SULFATE 0.3% OPHTHALMIC (EYE DROPS) 5ML BOTTLE OU SCH ×4 (05:44→22:29)
[2022-11-21 09:09] LABS: BASO % 0.4 % (0-2.0); EOS % 1.2 % (0-4.5); HEMATOCRIT 32.8 % (32.4-45.2); HEMOGLOBIN 11.2 GM/dL (10.7-15.3); LYMPH % 17.1 % (8-40); MCH 29.4 pg (25.7-33.7); MCHC 34.3 g/dl (32.0-36.0); MEAN CELL VOLUME 85.6 fl (80-96); MEAN PLT VOLUME 9.9 fl (7.5-11.1); MONO % 8.9 % (3.8-10.2); NEUT % 72.4 % (42.8-82.8); PLATELET COUNT 153 10^3/uL (134-434); RBC 3.83 M/mm3 (3.60-5.2); RDW 13.7 % (11.6-15.6); WHITE BLOOD COUNT 8.8 K/mm3 (4.0-10.0)
[2022-11-21] MEDS: ENOXAPARIN NA (PORCINE) 40 MG/0.4 ML DISP.SYRIN SQ SCH (09:45)
[2022-11-21] MEDS: oxyCODONE HCL 5 MG TABLET PO PRN ×2 (19:57→23:53)
[2022-11-22] MEDS: IBUPROFEN 600 MG TABLET (FP) PO PRN ×4 (04:27→23:09)
[2022-11-22] MEDS: SIMETHICONE 80 MG TAB.CHEW (FP) PO PRN ×3 (04:28→23:09)
[2022-11-22] MEDS: GENTAMICIN SULFATE 0.3% OPHTHALMIC (EYE DROPS) 5ML BOTTLE OU SCH ×6 (05:55→22:06)
[2022-11-22] MEDS: ENOXAPARIN NA (PORCINE) 40 MG/0.4 ML DISP.SYRIN SQ SCH (09:50)
[2022-11-23] MEDS: GENTAMICIN SULFATE 0.3% OPHTHALMIC (EYE DROPS) 5ML BOTTLE OU SCH ×2 (06:00→09:03)
[2022-11-23 07:14] LABS: BASO % 0.6 % (0-2.0); EOS % 2.5 % (0-4.5); HEMATOCRIT 34.4 % (32.4-45.2); HEMOGLOBIN 11.3 GM/dL (10.7-15.3); MCH 28.4 pg (25.7-33.7); MEAN PLT VOLUME 9.2 fl (7.5-11.1); MONO % 7.4 % (3.8-10.2); NEUT % 72.5 % (42.8-82.8); PLATELET COUNT 213 10^3/uL (134-434); RDW 13.6 % (11.6-15.6); WHITE BLOOD COUNT 12.5 K/mm3 (4.0-10.0)
[2022-11-23 08:18] VITALS: BP 123/78; PULSE 84; TEMP 98.1
[2022-11-23] MEDS: ENOXAPARIN NA (PORCINE) 40 MG/0.4 ML DISP.SYRIN SQ SCH (09:05)
== END 2022-11-23 12:40 | disposition home or self-care (01) | DRG 540 ==
LOC: JDEL 22:46 → JLDR 23:20 → J3W 11-20 04:17
PROVIDERS: ADMIT Obstetrics & Gynecology; ATTEND Obstetrics & Gynecology
PROC: 10D00Z1 Extraction of Products of Conception, Low, Open Approach (ICD-10-PCS; principal; 2022-11-20)
DX: O42.013 Preterm premature rupture of membranes, onset of labor within 24 hours of rupture, third trimester (principal); O32.1XX2 Maternal care for breech presentation, fetus 2; O30.043 Twin pregnancy, dichorionic/diamniotic, third trimester; O34.219 Maternal care for unspecified type scar from previous cesarean delivery; Z3A.34 34 weeks gestation of pregnancy; Z37.2 Twins, both liveborn
CPT/HCPCS: 36415; 36600; 80048; 82803; 85025; 86780; 86850; 86900; 86901; 87389; 88307-TC

== ENCOUNTER 2022-12-17 18:24 | Emergency (ER) | payer OTHER ==
[2022-12-17 18:34] VITALS: BP 118/79; PULSE 66; RESP 20; TEMP 98.2; BMI 29.3
[2022-12-17] MEDS ORDERED: SODIUM CHLORIDE 1,000 ML IV STA (19:19)
[2022-12-17] MEDS ORDERED: FAMOTIDINE 20 MG/50 ML IVPB 20 MG/50 ML MG IVPB ONE ×2 (19:19→19:30)
[2022-12-17] MEDS ORDERED: ACETAMINOPHEN 1000 MG/100 ML BAG IVPB ONE (19:19)
[2022-12-17] MEDS ORDERED: ACETAMINOPHEN INJECTION 100 ML IVPB ONE (19:30)
[2022-12-17 20:15] LABS: BASO % 1.2 % (0-2.0); EOS % 2.8 % (0-4.5); HEMOGLOBIN 12.6 GM/dL (10.7-15.3); LYMPH % 35.9 % (8-40); MCH 27.9 pg (25.7-33.7); MCHC 33.1 g/dl (32.0-36.0); MEAN CELL VOLUME 84.3 fl (80-96); MEAN PLT VOLUME 9.5 fl (7.5-11.1); MONO % 9.1 % (3.8-10.2); PLATELET COUNT 234 10^3/uL (134-434); RBC 4.51 M/mm3 (3.60-5.2); RDW 13.5 % (11.6-15.6); WHITE BLOOD COUNT 5.7 K/mm3 (4.0-10.0)
[2022-12-17 20:33] LABS: POTASSIUM 4.1 mmol/L (3.5-5.1)
[2022-12-17 20:35] LABS: CALCIUM 8.6 mg/dL (8.5-10.1)
[2022-12-17 20:36] LABS: ALBUMIN 3.4 g/dl (3.4-5.0); BLOOD UREA NITROGEN 11.2 mg/dL (7-18)
[2022-12-17 20:39] LABS: CREATININE 0.4 mg/dL (0.55-1.3)
[2022-12-17 20:40] LABS: BILIRUBIN,TOTAL 0.7 mg/dL (0.2-1); TOT PROT 7.2 g/dl (6.4-8.2)
== END 2022-12-17 22:20 | disposition home or self-care (01) ==
LOC: JER 18:24
PROC: 3E033GC Introduction of Other Therapeutic Substance into Peripheral Vein, Percutaneous Approach (ICD-10-PCS; principal; 2022-12-17)
PROC: 3E033NZ Introduction of Analgesics, Hypnotics, Sedatives into Peripheral Vein, Percutaneous Approach (ICD-10-PCS; 2022-12-17)
DX: O99.63 Diseases of the digestive system complicating the puerperium (principal); K80.20 Calculus of gallbladder without cholecystitis without obstruction; R10.13 Epigastric pain
CPT/HCPCS: 36415; 76705-TC; 80053; 83690; 85025; 99284-25

== ENCOUNTER 2023-06-10 04:15 | Day surgery (SDC) | payer OTHER ==
[2023-06-09 11:08] VITALS: BMI 29.5
[2023-06-10] MEDS ORDERED: BUPIVACAINE HCL/PF 0.25% (2.5MG/ML) 10 ML VIAL ONE (13:17)
[2023-06-10] MEDS ORDERED: HEPARIN NA (PORCINE) 5,000 UNITS/ML 1ML VIAL ONE (13:17)
[2023-06-10] MEDS ORDERED: PROPOFOL 20 ML ONE (14:32)
[2023-06-10] MEDS ORDERED: MIDAZOLAM HCL 2 MG/2 ML SINGLE DOSE VIAL ONE (14:32)
[2023-06-10] MEDS ORDERED: ROCURONIUM BROMIDE 50 MG/5 ML SYRINGE ONE ×2 (14:32→15:36)
[2023-06-10] MEDS ORDERED: SUCCINYLCHOLINE CHLORIDE 200 MG/10 ML SYRINGE ONE (14:32)
[2023-06-10] MEDS ORDERED: INDOCYANINE GREEN 25 MG/10 ML VIAL IVPUSH ONE (14:41)
[2023-06-10] MEDS ORDERED: cefOXitin SODIUM 2 GM VIAL (RESTRICTED TO ID) IVPB ONE (14:41)
[2023-06-10] MEDS: cefOXitin SODIUM 2 GM VIAL (RESTRICTED TO ID) IVPB ONE (14:43)
[2023-06-10] MEDS: BUPIVACAINE HCL/PF 0.25% (2.5MG/ML) 10 ML VIAL IJ ONE (14:44)
[2023-06-10] MEDS ORDERED: ACETAMINOPHEN INJECTION 100 ML IVPB ONE (15:04)
[2023-06-10] MEDS ORDERED: NEOSTIGMINE METHYLSULFATE 0.5 MG/1 ML - 10 ML MDV ONE (15:50)
[2023-06-10] MEDS ORDERED: ONDANSETRON 4 MG/2 ML VIAL IVPUSH PRN (16:18)
[2023-06-10] MEDS: LACTATED RINGERS SOLUTION 1,000 ML IV SCH (17:04)
[2023-06-10 17:29] VITALS: RESP 16
[2023-06-10] MEDS ORDERED: oxyCODONE HCL 5 MG TABLET PO PRN (17:56)
[2023-06-10] MEDS ORDERED: ONDANSETRON *ODT* 4 MG TABLET SL PRN (17:57)
[2023-06-10] MEDS: oxyCODONE HCL 5 MG TABLET PO ONE (18:00)
[2023-06-10 18:13] VITALS: PULSE 82
[2023-06-10 19:19] VITALS: BP 127/75; TEMP 97.8
== END 2023-06-10 19:20 | disposition home or self-care (01) ==
LOC: JASU-SURG 04:15
PROVIDERS: ATTEND Surgery
PROC: 8E0W4CZ Robotic Assisted Procedure of Trunk Region, Percutaneous Endoscopic Approach (ICD-10-PCS; 2023-06-10)
PROC: 0FT44ZZ Resection of Gallbladder, Percutaneous Endoscopic Approach (ICD-10-PCS; principal; 2023-06-10 14:30)
DX: K80.80 Other cholelithiasis without obstruction (principal)
CPT/HCPCS: 81025; 88304-TC; 94760; J0131; J1644